=== PATIENT | female | born 1950 | race Caucasian/White ===

== ENCOUNTER → 2018-06-06 13:00 | Outpatient (CLI) | payer MEDICARE, SELFPAY | PROVIDERS: Family Provider Internal Medicine; PCP Internal Medicine | DX: Z23 Encounter for immunization (principal) | CPT/HCPCS: 90471; 90662 ==

== ENCOUNTER → 2019-03-05 08:50 | Outpatient (CLI) | payer MEDICARE, SELFPAY ==
--- NOTE | 2019-03-05 | DI.MRI.S_ITS ---
PROCEDURE: MR FEMUR RT WO CON INDICATIONS: Pain in right leg TECHNIQUE: Noncontrast coronal and sagittal T1 spin echo and STIR; axial T1 spin echo and T2 fast spin echo with fat saturation through the right thigh. COMPARISON: None. FINDINGS: Image quality: Diagnostic. Bones: No acute fracture or dislocation is identified involving the osseous structures of the right thigh. The other included osseous structures of the knee patient are intact. No suspicious osseous lesions are identified. Soft tissues: There is a full-thickness tear of the hamstrings tendons from the ischial tuberosity with mild distal retraction of the torn tendon fragments by up to approximately 2-3 cm. Mild edema along the course of the gastrocnemius muscles is evident. No soft tissue masses or drainable fluid collections are identified. There is mild edema identified along the adductor muscles and also involving the quadratus femoris and obturator internus muscles. The included soft tissues of the lower pelvis are grossly unremarkable. IMPRESSION: 1. Complete tears of the right hamstrings tendons with mild distal retraction. 2. Moderate strains of the adductor muscles, quadratus femoris muscle, and obturator internus muscle. 3. No acute fractures. Dictated by: Delon Farrar M.D. on 03/05/2019 at 8:55 Approved by: Delon Farrar M.D. on 03/05/2019 at 8:59
== END ==
PROVIDERS: Family Provider Internal Medicine; PCP Internal Medicine; Referring Provider Orthopaedic Surgery; Visit Provider Orthopaedic Surgery
DX: M79.604 Pain in right leg (principal); S76.811A Strain of other specified muscles, fascia and tendons at thigh level, right thigh, initial encounter
CPT/HCPCS: 73718

== ENCOUNTER → 2019-05-20 11:12 | Outpatient (CLI) | payer MEDICARE, SELFPAY | PROVIDERS: Family Provider Internal Medicine; PCP Internal Medicine | DX: Z23 Encounter for immunization (principal) | CPT/HCPCS: 90471; 90686 ==

== ENCOUNTER 2019-06-19 12:16 | Day surgery (SDC) | payer MEDICARE, SELFPAY ==
[2019-06-17 07:38] VITALS: BMI 31.6
--- NOTE | 2019-06-19 | PATH_ITS ---
[facility] Accession Number: [id number] . 01 Material submitted: . PART A: endometrium - ENDOMETRIAL CURETTINGS PART B: body - INTERCAVITARY MASS . 01 Clinical history: . HYSTEROSCOPY D/C . 02 Diagnosis: A. Endometrial Curettings: Small fragments of endometrial tissue and strips of endometrial glandular epithelium; negative for glandular hyperplasia, cytologic atypia or malignancy; occasional granular elements present, possibly consistent with actinomyces sulfur granules, in the appropriate clinical context. Avulsed squames with reactive features; negative for squamous dysplasia or malignancy. Avulsed portions of squamous mucosa with features of atrophy; negative for squamous dysplasia or malignancy. Please see comment. . B. Intracavitary Mass: Portions of endometrial tissue with features of cystic atrophy; negative for glandular hyperplasia, cytologic atypia or malignancy. Small fragments of myometrium with no significant histomorphologic abnormality. [facility] 06/23/2019 1440 Local . 02 Comment: Part A: Due to the scant nature of endometrial tissue in this biopsy, it may not be entirely technical services representative of this patient's endometrium. Additional sampling could be considered, if clinically appropriate. . 02 Electronically signed: . Moriah Lau MD, Pathologist NPI- [id number] . 01 Gross description: . (A) Received in formalin, labeled endometrial curettings, are multiple fragments of red-brown tissue (0.7 x 0.3 x less than 0.1 cm in aggregate). Filtered and entirely submitted in cassette A1. (B) Received in formalin, labeled intracavitary mass, are multiple pieces of theodore-pink rubbery tissue (2.0 x 0.5 x 0.5 cm in aggregate). Entirely submitted in cassette B1. ([id number]) /[facility] 06/23/2019 1109 Local . 02 Pathologist provided ICD-10: N95.0 . 02 CPT . 436185, [id number] Performed at: 01 [facility] [address] [place] [address], [place], [place] [id number] MD Dwight Jarrell MD Phone: [phone] Performed at: 02 [facility] [address] [place], [place] [id number] MD Ama Gonzalez MD Phone: [phone]
[2019-06-19 12:33] VITALS: BMI 31.6
[2019-06-19 12:54] VITALS: BP 151/83; PULSE 60; RESP 15; TEMP 36.4; O2SAT 98
[2019-06-19 13:01] VITALS: BMI 31.6
[2019-06-19] MEDS: LACTATED RINGERS 1,000 ML 100 ML IV (13:01)
--- NOTE | 2019-06-19 13:32 | PM.PREOP ---
Pre-operative Note Interval Note History & Physical reviewed/Exam performed by Physician: Yes Changes to H&P: No
--- NOTE | 2019-06-19 14:49 | SUR.OPER ---
Lithotomy on padded OR bed, head on pillow, arms secured on padded arm boards at <90 degrees abduction. Legs secured in padded yellow fins stirrups.
--- NOTE | 2019-06-19 15:24 | PM.OP.1 ---
Operative Date/Time/Diagnoses Date of procedure: 06/19/19 Time of procedure: 15:24 Pre-op diagnosis: Postmenopausal bleeding Post-op diagnosis: same Procedure & Clinicians Procedure: Hysteroscopy D&C with resection of intracavitary mass Same procedure as scheduled: Yes Indications: Postmenopausal bleeding and thickened endometrium on ultrasound Surgeon: Yu Borrero Click Yes if Unassisted: Yes Anesthesia Type: General Operative Notes Findings: Intrauterine mass either fibroid or polyp thin endometrium otherwise Closure Type: not applicable Specimen(s): other (Endometrial curettings and uterine intracavitary mass) Estimated Blood Loss (mL): 5 Blood products transfused: none Procedure in detail: The patient was brought to the operating room where she underwent general anesthesia. She was placed in low stirrups She was prepped and draped in usual sterile fashion with pulsatile stockings in place and functional, warming in place. No antibiotics were indicated. A single-tooth tenaculum was placed on the anterior lip of the cervix and the uterus dilated to #8 Hegar dilator. The hysteroscope was placed into the uterus with a sorbitol solution running and under constant suction. The resecting loop set at 80 W of cutting was used to resect the mass down to the level of the endometrium. A endometrial curettage was performed. The mass and the endometrial curettage was sent to pathology. The patient went to recovery room in good condition counts of instruments and sponges were correct. Estimated blood loss less than 5 mL. The sorbitol solution I=O approximately 2000 mL. Complications: none Post-operative Condition: stable Disposition: same day surgery Plan for aftercare: Home when awake and stable
[2019-06-19 15:25] VITALS: BP 141/73; PULSE 68; RESP 13; TEMP 36.2; O2SAT 98
[2019-06-19 15:30] VITALS: BP 143/76; PULSE 64; RESP 15; O2SAT 97
[2019-06-19 15:35] VITALS: BP 142/82; PULSE 63; RESP 15; O2SAT 97
[2019-06-19 16:00] VITALS: BP 150/81; PULSE 57; TEMP 36.2; O2SAT 97
== END 2019-06-19 16:37 | disposition home or self-care (01) ==
PROVIDERS: PCP Internal Medicine; Visit Provider Specialist
PROC: 0UDB8ZZ Extraction of Endometrium, Via Natural or Artificial Opening Endoscopic (ICD-10-PCS; CPT 58558; principal; 2019-06-19 13:45)
DX: N95.0 Postmenopausal bleeding (principal)
CPT/HCPCS: 58558; J1100; J2250; J2405; J2704; J3010

== ENCOUNTER → 2019-08-15 16:08 | Outpatient (CLI) | payer MEDICARE, SELFPAY ==
--- NOTE | 2019-08-15 | DI.MRI.S_ITS ---
PROCEDURE: MR LUMBAR SPINE WO CON INDICATIONS: Left Radiculopathy, lumbar region TECHNIQUE: Noncontrast sagittal T1 spin echo and T2 fast echo, sagittal STIR, axial T1 and T2 fast spin echo through the lumbar spine. In cases with scoliosis, additional coronal T2 fast spin echo may be performed. COMPARISON: [facility], CT, CT KIDNEY URETER BLADDER (KUB), 10/31/2017, 18:05. FINDINGS: Image quality: Excellent. Alignment and Curvature: No significant alignment abnormality is seen. Bone Marrow: Marrow is of normal overall signal. No acute vertebral body compression fractures. Spinal Cord: Conus medullaris terminates at the L1 level. Visualized cord demonstrates normal signal and size. Paraspinous Soft Tissues: No paravertebral masses. T12-L1: Normal appearance. L1-L2: Mild loss of disc height is seen. Loss of disc signal is seen. Bridging endplate osteophytes are seen. Mild generalized disc bulge is seen. Mild to moderate facet hypertrophy is seen. No significant neural foraminal or central canal narrowing can be seen. L2-L3: The disc height is well-preserved. Loss of disc signal is seen at this level. Minimal disc bulge is seen. Mild facet joint hypertrophy is seen. No significant neural foraminal or central canal narrowing can be seen. L3-L4: The disc height is well-preserved. Loss of disc signal is seen at this level. Mild to moderate disc bulge is seen, which is eccentric to the right. Mild to moderate facet hypertrophy is seen. There is minimal right-sided and no left-sided neural foraminal narrowing seen. Minimal to mild central canal narrowing is seen. L4-L5: The disc height is well-preserved. Loss of disc signal is seen at this level. Moderate disc bulge is seen, with a superimposed central disc extrusion, with superior migration of disc material. There is at least moderate facet hypertrophy seen at this level. There is moderate bilateral neural foraminal narrowing seen, right worse than left. Moderate to severe central canal narrowing is seen, as on series 4 image 23. L5-S1: Mild loss of disc height is seen. Loss of disc signal is seen. Mild generalized disc bulge is seen. Prominent facet hypertrophy is seen. There is moderate left-sided and no significant right-sided neural foraminal narrowing seen. Minimal central canal narrowing is seen. IMPRESSION: At L4-L5, there is a central disc extrusion, with associated moderate to severe central canal narrowing. Milder degenerative changes are seen elsewhere. Dictated by: Shade Lanier M.D. on 08/18/2019 at 8:33 Approved by: Shade Lanier M.D. on 08/18/2019 at 8:38
== END ==
PROVIDERS: PCP Internal Medicine; Referring Provider Orthopaedic Surgery; Visit Provider Orthopaedic Surgery
DX: M51.16 Intervertebral disc disorders with radiculopathy, lumbar region (principal); M48.061 Spinal stenosis, lumbar region without neurogenic claudication; M48.07 Spinal stenosis, lumbosacral region; M47.26 Other spondylosis with radiculopathy, lumbar region; M47.27 Other spondylosis with radiculopathy, lumbosacral region
CPT/HCPCS: 72148

== ENCOUNTER → 2019-09-04 08:31 | Outpatient (CLI) | payer MEDICARE, SELFPAY ==
--- NOTE | 2019-09-04 | DI.RAD.S_ITS ---
PROCEDURE: XR LUMBAR SPINE 2-3V INDICATIONS: LOW BACK PAIN TECHNIQUE: 3 views of the lumbar spine were acquired. COMPARISON: None. FINDINGS: Bones: No fracture or focal osseous destruction. Multilevel degenerative endplate sclerosis and spurring. Diffuse facet arthropathy. Trace anterolisthesis of L5 on S1. Trace retrolisthesis of L1 on L2. Mild narrowing of the L1-L2, L2-L3, L3-L4 disc spaces. Moderate bilateral hip degeneration. Sacroiliac joints grossly unremarkable Soft tissues: Scattered vascular calcifications seen in the aorta. IMPRESSION: Diffuse mild lumbar spondylosis and facet arthropathy. Multilevel spondylolisthesis as above. Moderate symmetric bilateral hip joint degeneration. Dictated by: Aguila Green M.D. on 09/04/2019 at 12:02 Approved by: Aguila Grene M.D. on 09/04/2019 at 12:05
== END ==
PROVIDERS: PCP Internal Medicine; Referring Provider Chiropractor; Visit Provider Chiropractor
DX: M54.5 Low back pain (principal); M47.816 Spondylosis without myelopathy or radiculopathy, lumbar region; M16.0 Bilateral primary osteoarthritis of hip; M43.16 Spondylolisthesis, lumbar region
CPT/HCPCS: 72100

== ENCOUNTER → 2020-11-22 08:10 | Outpatient (CLI) | payer MEDICARE, SELFPAY ==
--- NOTE | 2020-11-22 | DI.RAD.S_ITS ---
PROCEDURE: XR DEXA AXIAL SKELETON INDICATIONS: ROUTINE SCREENING COMPARISON: None. FINDINGS: This blank DEXA report has been sent in error by the PACS system. The correct and complete report will be forthcoming in 1-2 days. Thank you for your patience and understanding. Dictated by: Naya Quiles MD, PhD on 11/22/2020 at 16:05 Approved by: Naya Quiles MD, PhD on 11/22/2020 at 16:05
--- NOTE | 2020-11-22 | DI.MG.S_ITS ---
BILATERAL DIGITAL SCREENING MAMMOGRAM 3D/2D WITH CAD: 11/22/2020 CLINICAL: Routine screening. Comparison is made to exams dated: 05/26/2016 mammogram and 12/13/2010 mammogram - [facility]. There are scattered fibroglandular elements in both breasts. Current study was also evaluated with a Computer Aided Detection (CAD) system. No significant masses, calcifications, or other findings are seen in either breast. There has been no significant interval change. IMPRESSION: NEGATIVE There is no mammographic evidence of malignancy. A 1 year screening mammogram is recommended. This exam was interpreted at Station ID: [id number]. NOTE: For mammograms, a report in lay terms will be sent to the patient. Approximately 15% of breast malignancies will not be visualized mammographically. In the management of a palpable breast mass, a negative mammogram must not discourage biopsy of a clinically suspicious lesion. Electronically Signed By: Ramiro cano/joe:11/22/2020 08:39:12 letter sent: Normal Exam ACR BI-RADS Category 1: Negative [id number]
== END ==
PROVIDERS: PCP Internal Medicine; Referring Provider Internal Medicine; Visit Provider Internal Medicine
DX: Z78.0 Asymptomatic menopausal state (principal); Z12.31 Encounter for screening mammogram for malignant neoplasm of breast; Z82.62 Family history of osteoporosis
CPT/HCPCS: 77063; 77067; 77080

== ENCOUNTER → 2021-01-20 13:42 | Outpatient (CLI) | payer MEDICARE, SELFPAY ==
[2021-01-20 14:08] LABS: COVID19 -Nasal RAPID Negative (Negative)
== END ==
PROVIDERS: PCP Internal Medicine; Visit Provider Physician Assistant
DX: Z20.822 Contact with and (suspected) exposure to COVID-19 (principal)
CPT/HCPCS: 87635; C9803

== ENCOUNTER → 2021-06-10 11:57 | Outpatient (CLI) | payer MEDICARE, SELFPAY ==
[2021-06-10 12:35] LABS: COVID19 -Nasal RAPID Negative (Negative)
== END ==
PROVIDERS: PCP Internal Medicine; Visit Provider Physician Assistant
DX: Z20.822 Contact with and (suspected) exposure to COVID-19 (principal)
CPT/HCPCS: 87635; C9803

== ENCOUNTER → 2021-06-17 09:59 | Outpatient (CLI) | payer MEDICARE, SELFPAY ==
[2021-06-17 12:31] LABS: COVID19 -Nasal RAPID Negative (Negative)
== END ==
PROVIDERS: PCP Internal Medicine; Visit Provider Physician Assistant
DX: Z20.822 Contact with and (suspected) exposure to COVID-19 (principal)
CPT/HCPCS: 87635; C9803

== ENCOUNTER → 2021-07-08 09:48 | Outpatient (CLI) | payer MEDICARE, SELFPAY ==
[2021-07-08 11:01] LABS: COVID19 -Nasal RAPID Negative (Negative)
== END ==
PROVIDERS: Nurse Practitioner Critical Care Medicine; PCP Internal Medicine; Referring Provider Internal Medicine; Visit Provider Internal Medicine
DX: Z20.822 Contact with and (suspected) exposure to COVID-19 (principal)
CPT/HCPCS: 87635

== ENCOUNTER → 2021-10-10 10:00 | Outpatient (CLI) | payer MEDICARE, SELFPAY ==
[2021-10-10 10:52] LABS: Add Manual Diff / Slide Review NO; Basophils Absolute Auto 100 /uL (0-100); Basophils Percent Auto 1.1 % (0-2); Eosinophils Absolute Auto 100 /uL (0-450); Eosinophils Percent Auto 1.3 % (2-4); Hematocrit 41.8 % (36-46); Hemoglobin 14.1 g/dL (12.0-16.0); Lymphocytes Absolute Auto 2000 /uL (1100-4500); Mean Corpuscular HGB Conc 33.8 % (30-36); Mean Corpuscular Hemoglobin 32.6 PG (26-34); Mean Corpuscular Volume 96.5 fL (80-100); Monocytes Absolute Auto 400 /uL (0-900); Monocytes Percent Auto 7.1 % (3-14); Neutrophils Absolute Auto 2900 /uL (1500-7000); Neutrophils Percent Auto 53.5 % (50-75); Platelet Count 190 X10^3/uL (150-400); Red Blood Cell Count 4.33 X10^6/uL (4.0-5.2); Red Cell Distribution Width 12.9 % (11.6-14.8); White Blood Cell Count 5.4 X10^3/uL (4.5-11.0)
[2021-10-10 11:05] LABS: Alanine Aminotransferase 23 IU/L (<35); Albumin 4.3 g/dL (3.5-5.0); Albumin Globulin Ratio 1.3 (1.0-2.8); Alkaline Phosphatase 71 U/L (38-126); Aspartate Aminotransferase 28 IU/L (14-36); BUN Creatinine Ratio 32.9 (6-22); Bilirubin Total 0.5 mg/dL (0.2-1.3); Blood Urea Nitrogen 24 mg/dL (7-17); Calcium 9.1 mg/dL (8.4-10.2); Carbon Dioxide 29 mmol/L (22-32); Chloride 106 mmol/L (98-107); Cholesterol 239 mg/dL (140-199); Estimated Glomerular Filt Rate > 60.0 mL/min (>60); Globulin 3.3 g/dL (1.7-4.1); Glucose 99 mg/dL (80-110); HDL Cholesterol 78 mg/dL (40-60); HEMOLYSIS < 15 (0-50); LDL Cholesterol Calculated 130 mg/dL (<100); Potassium 4.5 mmol/L (3.4-5.1); Sodium 142 mmol/L (137-145); Total Protein 7.6 g/dL (6.3-8.2); Triglycerides 153 mg/dL (35-150)
[2021-10-10 11:53] LABS: TSH w/ Reflex to FT4 2.41 uIU/mL (0.47-4.68)
== END ==
PROVIDERS: PCP Internal Medicine; Referring Provider Internal Medicine; Visit Provider Internal Medicine
DX: E78.2 Mixed hyperlipidemia (principal)
CPT/HCPCS: 36415; 80053; 80061; 84443; 85025

== ENCOUNTER → 2021-11-14 10:56 | Outpatient (CLI) | payer MEDICARE, SELFPAY ==
[2021-11-14 13:54] LABS: COVID19 -Nasal RAPID Negative (Negative)
== END ==
PROVIDERS: PCP Internal Medicine; Visit Provider Surgery
DX: Z20.822 Contact with and (suspected) exposure to COVID-19 (principal); Z01.812 Encounter for preprocedural laboratory examination
CPT/HCPCS: 87635; C9803

== ENCOUNTER 2021-11-15 07:19 | Day surgery (SDC) | payer MEDICARE, SELFPAY ==
[2021-11-15 07:39] VITALS: BMI 31.3
[2021-11-15] MEDS: LACTATED RINGERS 1,000 ML 200 ML IV (07:52)
[2021-11-15 07:53] VITALS: BP 133/80; PULSE 56; RESP 16; TEMP 36.4; O2SAT 97
--- NOTE | 2021-11-15 08:35 | P.HP_ITS ---
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 History is notable for first-degree relative with colon cancer, sister. She has a personal history of colonic polyps. Last colonoscopy was performed 2016 and demonstrated a tubular adenoma. Is currently feeling well. Patient History Medical History Actinic keratosis (~2009) Aortic atherosclerosis Back pain Bilateral primary osteoarthritis of knee Chronic insomnia Encounter for general adult medical examination without abnormal findings Fractures GI bleed due to NSAIDs (~2016) H/O reduction of closed fracture (08/15/16) Herpes (~1973) Herpes genitalis History of colon polyps Kidney stones (~2004) Mixed hyperlipidemia Plantar warts (~1975) Shoulder pain Surgical History Anesthesia History of surgery (~2015) Hx of arthroscopic knee surgery (~1980) Hx of tonsillectomy (~1956) Family & Social History Family History Father Cancer History of heart disease Mother COPD (chronic obstructive pulmonary disease) Brother History of heart disease Hypertension Melanoma Sister Diabetes mellitus History of heart disease Hypertension Hyperlipidemia Mental health problem Grandfather History of heart disease Grandmother COPD (chronic obstructive pulmonary disease) Grandmother Tuberculosis Social History: household members none Tobacco & Substance use: Smoking Status Never smoker alcohol intake current alcohol intake frequency a few times a week Substance Use Type does not use Meds Home Medications and Allergies Home Medications Medication Instructions Recorded Confirmed Type cholecalciferol (vitamin D3) 25 1,000 unit PO QDAY #0 08/15/16 11/15/21 History mcg (1,000 unit) tablet (Vitamin D3) acetaminophen 500 mg tablet 1,000 mg PO Q6H PRN 06/19/19 11/15/21 History (Tylenol Extra Strength) tramadol 50 mg tablet 50 mg PO QDAY PRN #30 tab 06/19/19 10/10/21 Rx Lactobacillus 1 cap PO DAILY cap 10/10/21 11/15/21 History acidophilus-Bifidobac.animalis 2.5 billion cell capsule (Daily Probiotic) aspirin 81 mg capsule 81 mg PO DAILY 10/10/21 11/15/21 History glucosamine 1500/Chondroitin 1200 1 tab PO BID 10/10/21 11/15/21 History hydrocodone 5 mg-acetaminophen 325 1 tab PO BEDTIME PRN 10/10/21 11/15/21 Histor y mg tablet ibuprofen 200 mg tablet 200 mg PO BID PRN tab 10/10/21 11/15/21 History loratadine 10 mg tablet 10 mg PO DAILY 10/10/21 11/15/21 History (Allerclear) magnesium oxide 400 mg PO DAILY 10/10/21 11/15/21 History melatonin 5 mg capsule 5 mg PO .qhs PRN cap 10/10/21 11/15/21 History rosuvastatin 10 mg tablet 10 mg PO DAILY #90 tab 10/10/21 11/15/21 Rx vitamin A-vitamin C-vit E-min 2 tab PO DAILY PRN 10/10/21 10/10/21 History tablet zolpidem 10 mg tablet 10 mg PO BEDTIME PRN tab 10/10/21 10/10/21 History acyclovir 200 mg capsule 200 mg PO BID PRN 11/14/21 11/15/21 History Allergies Allergy/AdvReac Type Severity Reaction Status Date / Time pineapple [PINEAPPLE] Allergy Mild sores in Verified 11/15/21 07:35 mouth naproxen [From Aleve] AdvReac Severe gi bleed Verified 11/15/21 07:35 with high doses Exam Vital Signs (past 8 hours): - 11/15/21 07:53 Temperature 97.6 F Pulse Rate 56 L Respiratory Rate 16 Blood Pressure 133/80 Pulse Oximetry 97 Oxygen Delivery Method Room Air Narrative Exam Narrative: General adult woman alert oriented no acute distress Chest nonlabored respirations Extremities warm well perfused Assessment & Plan Assessment & Plan narrative: The patient requires colorectal screening and colonoscopy is recommended. Technical details were discussed. Risks, benefits, alternatives explained. Risks including but not limited to myocardial infarction, aspiration, bleeding, pain, missed lesion, incomplete examination, need for further radiographic studies, colonic perforation, and need for major abdominal surgery were discussed. All questions were answered to their satisfaction, and they are in agreement with this plan. Time Spent With Patient Critical Care time: I spent a total of [] minutes of critical care time on this patient's care today; this time is exclusive of procedural time.
[2021-11-15] MEDS: fentaNYL 250 MCG/5 ML INJ 200 MCG IV (08:41)
[2021-11-15] MEDS: MIDAZOLAM 5 MG/5 ML VIAL 3 MG IV (08:41)
--- NOTE | 2021-11-15 09:01 | P.OP.COLON_ITS ---
Operative Date/Time/Diagnoses Date of procedure: 11/15/21 Time of procedure: 09:02 Pre-op diagnosis: First-degree family member with colon cancer, personal history of colonic polyps Post-op diagnosis: same Procedure & Clinicians Study performed: Colonoscopy Same procedure as scheduled: Yes Indications: Personal history of colonic polyps, first-degree family member with colon cancer Surgeon: Jeb Rodriguez Procedure Notes Procedure in detail: Medications: Conscious sedation using 3 mg IV midazolam and 200 mcg IV of fentanyl The history and physical was performed/updated and the patient is ASA class is 2. The procedure was discussed in detail with the patient. Potential risks complications including infection, bleeding, missed diagnosis, perforation, need for surgery, and were explained. Their questions were answered and inf ormed consent was obtained. Patient was brought to the procedure room and placed standard monitoring equipment. The patient's vital signs were monitored continuously throughout the entire procedure. Prior to starting time-out was performed. The patient was placed in the left lateral recumbent position. Procedural sedation was administered. Examination began with a thorough inspection of the perianal area there was no evidence of fissures, fistulae, external hemorrhoids or cutaneous malignancy. The colonoscopy scope was then placed into the anal canal and was advanced to the cecum, which was identified by the ileocecal valve, the appendiceal orifice and the confluence of the taenia. The scope was then slowly withdrawn examining colon thoroughly in all directions, irrigating it of any residual stool. FINDINGS 1. No masses or polyps 2. Mild sigmoid diverticulosis 3. Internal hemorrhoids The patient tolerated the procedure well. They will be discharged once criteria are met. The prep was of good/excellent quality. The withdrawl time was 6 minutes. The sedation time was 20 minutes. Specimen(s): none sent Complications: none Impression: Normal colonoscopy Post-procedure Recommendations: Colonoscopy in 5 years Disposition: same day surgery
[2021-11-15 09:07] VITALS: BP 129/78; PULSE 57; RESP 19; TEMP 36.1; O2SAT 97
[2021-11-15 09:12] VITALS: BP 138/76; PULSE 54; RESP 14; O2SAT 97
[2021-11-15 09:17] VITALS: BP 132/71; PULSE 55; RESP 19; O2SAT 96
[2021-11-15 09:22] VITALS: BP 144/76; PULSE 56; RESP 18; O2SAT 98
[2021-11-15 09:24] VITALS: BP 143/75; PULSE 55; RESP 16; TEMP 36.2; O2SAT 97
== END 2021-11-15 09:50 | disposition home or self-care (01) ==
PROVIDERS: PCP Internal Medicine; Referring Provider Surgery; Visit Provider Surgery
PROC: 0DJD8ZZ Inspection of Lower Intestinal Tract, Via Natural or Artificial Opening Endoscopic (ICD-10-PCS; CPT 45378; principal; 2021-11-15 08:30)
DX: Z12.11 Encounter for screening for malignant neoplasm of colon (principal); Z86.010 Personal history of colon polyps; Z80.0 Family history of malignant neoplasm of digestive organs; K57.30 Diverticulosis of large intestine without perforation or abscess without bleeding; K64.1 Second degree hemorrhoids
CPT/HCPCS: G0105; 45380; 99152; J2250; J3010

== ENCOUNTER → 2022-07-14 17:02 | Outpatient (CLI) | payer MEDICARE, SELFPAY ==
[2022-07-14 18:38] LABS: Alanine Aminotransferase 20 IU/L (<35); Alkaline Phosphatase 72 U/L (38-126); Aspartate Aminotransferase 29 IU/L (14-36); BUN Creatinine Ratio 35.5 (6-22); Bilirubin Total 0.5 mg/dL (0.2-1.3); Blood Urea Nitrogen 22 mg/dL (7-17); Calcium 9.4 mg/dL (8.4-10.2); Carbon Dioxide 28 mmol/L (22-32); Chloride 101 mmol/L (98-107); Cholesterol 187 mg/dL (140-199); Estimated Glomerular Filt Rate > 60 mL/min (>60); Glucose 84 mg/dL (80-110); HDL Cholesterol 90 mg/dL (40-60); HEMOLYSIS < 15 (0-50); LDL Cholesterol Calculated 71 mg/dL (<100); Potassium 4.4 mmol/L (3.4-5.1); Sodium 138 mmol/L (137-145); Total Protein 7.7 g/dL (6.3-8.2); Triglycerides 129 mg/dL (35-150)
[2022-07-21 15:16] LABS: Albumin 4.3 g/dL (3.5-5.0); Albumin Globulin Ratio 1.3 (1.0-2.8); Globulin 3.4 g/dL (1.7-4.1)
== END ==
PROVIDERS: PCP Internal Medicine; Referring Provider Internal Medicine; Visit Provider Internal Medicine
DX: E78.2 Mixed hyperlipidemia (principal); I70.0 Atherosclerosis of aorta
CPT/HCPCS: 36415; 80053; 80061

== ENCOUNTER → 2023-05-22 15:22 | Outpatient (CLI) | payer MEDICARE, SELFPAY ==
[2023-05-22 16:30] LABS: Hematocrit 41.3 % (36-46); Hemoglobin 14.4 g/dL (12.0-16.0); Mean Corpuscular HGB Conc 34.8 % (30-36); Mean Corpuscular Hemoglobin 33.5 PG (26-34); Mean Corpuscular Volume 96.5 fL (80-100); Platelet Count 217 X10^3/uL (150-400); Red Blood Cell Count 4.28 X10^6/uL (4.0-5.2); Red Cell Distribution Width 12.7 % (11.6-14.8); White Blood Cell Count 7.8 X10^3/uL (4.5-11.0)
[2023-05-22 17:12] LABS: Alanine Aminotransferase 22 IU/L (<35); Albumin 4.4 g/dL (3.5-5.0); Albumin Globulin Ratio 1.3 (1.0-2.8); Alkaline Phosphatase 69 U/L (38-126); Aspartate Aminotransferase 29 IU/L (14-36); BUN Creatinine Ratio 29.6 (6-22); Bilirubin Total 0.7 mg/dL (0.2-1.3); Blood Urea Nitrogen 21 mg/dL (7-17); Calcium 9.8 mg/dL (8.4-10.2); Carbon Dioxide 28 mmol/L (22-32); Chloride 104 mmol/L (98-107); Cholesterol 190 mg/dL (140-199); Estimated Glomerular Filt Rate > 60 mL/min (>60); Globulin 3.4 g/dL (1.7-4.1); Glucose 89 mg/dL (80-110); HDL Cholesterol 89 mg/dL (40-60); HEMOLYSIS < 15 (0-50); LDL Cholesterol Calculated 71 mg/dL (<100); Sodium 138 mmol/L (137-145); Total Protein 7.8 g/dL (6.3-8.2); Triglycerides 149 mg/dL (35-150)
[2023-05-22 17:39] LABS: TSH w/ Reflex to FT4 1.96 uIU/mL (0.47-4.68)
== END ==
PROVIDERS: PCP Internal Medicine; Referring Provider Internal Medicine; Visit Provider Internal Medicine
DX: R07.9 Chest pain, unspecified (principal); E78.2 Mixed hyperlipidemia; I70.0 Atherosclerosis of aorta
CPT/HCPCS: 36415; 80053; 80061; 84443; 85027

== ENCOUNTER → 2023-06-22 10:14 | Outpatient (CLI) | payer MEDICARE, SELFPAY ==
--- NOTE | 2023-06-23 06:56 | DI.NM.S_ITS ---
DATE OF SERVICE: 06/22/2023 STUDY: Exercise perfusion study INDICATION: Chest pain with underlying hypertension, hyperlipidemia. RADIOPHARMACEUTICAL: 27.5 mCi technetium-99m Myoview IV was injected at stress and 12.1 mCi technetium-99m Myoview IV was injected at rest. CARDIAC STRESS: The patient underwent exercise perfusion study under the supervision of an attending staff. The patient walked on Georges protocol for 6 minutes and 9 seconds, achieved maximum heart rate of 134 which was 90% of target heart rate. Resting blood pressure 132/90 and peak blood pressure 180/102 mmHg. Achieved 7 METs of workload. Baseline rhythm was sinus. No significant inducible ischemic changes. The patient has frequent PVCs including couplets and a one-three beat run of nonsustained ventricular tachycardia. No anginal symptoms. Mountain fatigue and shortness of breath. SHEILA -8%. RAW DATA: Breast shadow seen. GATED STUDY: Resting LV ejection fraction 67% and stress LV ejection fraction 68% without any significant wall motion abnormalities. Resting end-diastolic volume 111 mL. TID ratio 0.96 which is within normal limits. Lung/heart ratio 0.34 which is within normal limits. MYOCARDIAL PERFUSION SCAN: Stress supine, resting supine, and stress prone images were compared to each other. There appears to be predominantly fixed moderate-size mildly decreased perfusion of mid to distal anterior wall extending into the anterior apex with mild reversibility. CONCLUSION: This is an abnormal myocardial perfusion study with moderate-size persistent mildly decreased perfusion of mid to distal wall extending into the anterior apex with mild reversibility. Consistent with prior non-transmural myocardial infarction and mild reversible garcia-infarct ischemia. However, on raw images, breast shadow was seen. No wall motion abnormalities. Other differential diagnosis, persistent breast tissue attenuation artifact. Fair exercise tolerance. Normal hemodynamic response. The patient has frequent PVCs during exercise with one-three beat run of nonsustained ventricular tachycardia. Left ventricular function is preserved. Correlate clinically and if pre-tests likely for coronary artery disease is high, consider left heart catheterization to make sure there is no underlying LAD disease. Discussed the findings with Dr. Holloway. Cinthya Zhou - Rayray/gabriela doc#: [id number]/job#: [id number] dd: 06/22/2023 16:35:00 dt: 06/23/2023 06:28:00 DICTATING MD/COPIES TO: Johnnie Solitario MD COPIES MNE: VISHNU;
== END ==
PROVIDERS: PCP Internal Medicine; Referring Provider Internal Medicine; Visit Provider Internal Medicine
DX: R07.9 Chest pain, unspecified (principal); R94.39 Abnormal result of other cardiovascular function study
CPT/HCPCS: 78452; 93017; A9502

== ENCOUNTER → 2024-07-14 09:41 | Outpatient (CLI) | payer MEDICARE, SELFPAY ==
--- NOTE | 2024-07-14 09:43 | DI.MG.S_ITS ---
BILATERAL DIGITAL SCREENING MAMMOGRAM 3D/2D WITH CAD: 07/14/2024 CLINICAL: Routine screening. Family history of breast cancer. Comparison is made to exams dated: 11/22/2020 mammogram, 05/26/2016 mammogram, and 12/13/2010 mammogram - [facility]. There are scattered areas of fibroglandular density (category b / 25%-50% glandular tissue). Current study was also evaluated with a Computer Aided Detection (CAD) system. No significant masses, calcifications, or other findings are seen in either breast. There has been no significant interval change. IMPRESSION: NEGATIVE There is no mammographic evidence of malignancy. A 1 year screening mammogram is recommended. Based on the Tyrer Cuzick model (a risk assessment model) the patient's lifetime risk is 5.8% and her 10 year risk is 4.3%. According to the ACR, ACS, and NCCN guidelines, an annual breast MRI exam along with mammogram is recommended if the patient's lifetime risk is 20% or greater. This exam was interpreted at Station ID: [id number]. NOTE: For mammograms, a report in lay terms will be sent to the patient. Approximately 15% of breast malignancies will not be visualized mammographically. In the management of a palpable breast mass, a negative mammogram must not discourage biopsy of a clinically suspicious lesion. Electronically Signed By: Jose jean-baptiste/joe:07/14/2024 10:16:57 letter sent: Normal Exam ACR BI-RADS Category 1: Negative
--- NOTE | 2024-07-14 09:43 | DI.RAD.S_ITS ---
PROCEDURE: XR DEXA AXIAL SKELETON INDICATIONS: screening for osteoporosis COMPARISON: [facility], [place], XR DEXA AXIAL SKELETON, 11/22/2020, 9:43. FINDINGS: Lumbar Spine: Bone mineral density 1.118 g/cm2, T score 0.9, within normal range. Left Hip: Bone mineral density 0.932 g/cm2, T score -0.1, within normal range. Left Femoral Neck: Bone mineral density 0.777 g/cm2, T score -0.6, within normal range, though trending down from prior studies. Fracture Risk Calculation (when applicable): 10-year fracture risk of a major osteoporotic fracture 8.2 percent and of a hip fracture 0.8 percent. (T score greater or equal to -1.0 to: NORMAL) (T score from -1.1 to -2.4: OSTEOPENIA) (T score less than or equal to -2.5: OSTEOPOROSIS) IMPRESSION: Normal bone mineral density at the lumbar spine and left hip. Follow-up guidelines as follows: Osteoporosis: Consider a repeat DEXA and Vertebral Fracture Assessment (VFA) exam in 2 years or sooner if medically necessary, to reassess this patient's status. Osteopenia: Consider a repeat DEXA in 2-3 years to reassess this patient's status, or if there is a new clinical indication. Normal: Consider a repeat DEXA in 5 years or sooner, or if there is a new clinical indication. All treatment decisions require clinical judgment and consideration of individual patient factors, including patient preferences, comorbidities, previous drug use, risk factors not captured in the FRAX model (e.g., frailty, falls, vitamin D deficiency, increased bone turnover, interval significant decline in bone density ) and possible under- or over-estimation of fracture risk by FRAX. In addition, the NOF Guide recommends that FDA-approved medical therapies be considered in postmenopausal women and men age >= 50 years with a: * Hip or vertebral (clinical or morphometric) fracture * T-score of <=-2.5 at the spine or hip * Ten-year fracture probability by FRAX of >= 3% for hip fracture or >=20% for major osteoporotic fracture. People with diagnosed cases of osteoporosis or at high risk for fracture should have regular bone mineral density tests. For patients eligible for Medicare, routine testing is allowed once every 2 years. The testing frequency can be increased to one year for patients who have rapidly progressing disease, those who are receiving or discontinuing medical therapy to restore bone mass, or have additional risk factors. Dictated by: Dwight Davies M.D. on 07/14/2024 at 12:49 Approved by: Dwight Davies M.D. on 07/14/2024 at 12:56
== END ==
PROVIDERS: PCP Internal Medicine; Referring Provider Internal Medicine; Visit Provider Internal Medicine
DX: Z12.31 Encounter for screening mammogram for malignant neoplasm of breast (principal); Z13.820 Encounter for screening for osteoporosis; Z78.0 Asymptomatic menopausal state; Z80.3 Family history of malignant neoplasm of breast
CPT/HCPCS: 77063; 77067; 77080

== ENCOUNTER → 2024-08-21 10:43 | Outpatient (CLI) | payer MEDICARE, SELFPAY ==
[2024-08-21 12:14] LABS: Hematocrit 42.1 % (36-46); Hemoglobin 14.3 g/dL (12.0-16.0); Mean Corpuscular HGB Conc 33.9 % (30-36); Mean Corpuscular Hemoglobin 32.9 PG (26-34); Mean Corpuscular Volume 96.9 fL (80-100); Platelet Count 196 X10^3/uL (150-400); Red Blood Cell Count 4.35 X10^6/uL (4.0-5.2); Red Cell Distribution Width 12.9 % (11.6-14.8); White Blood Cell Count 5.9 X10^3/uL (4.5-11.0)
[2024-08-21 12:34] LABS: Alanine Aminotransferase 51 IU/L (<35); Albumin 4.5 g/dL (3.5-5.0); Albumin Globulin Ratio 1.7 (1.0-2.8); Alkaline Phosphatase 64 U/L (38-126); Aspartate Aminotransferase 52 IU/L (14-36); BUN Creatinine Ratio 27.5 (6-22); Bilirubin Total 0.6 mg/dL (0.2-1.3); Blood Urea Nitrogen 22 mg/dL (7-17); Calcium 9.6 mg/dL (8.4-10.2); Carbon Dioxide 24 mmol/L (22-32); Chloride 104 mmol/L (98-107); Cholesterol 178 mg/dL (140-199); Estimated Glomerular Filt Rate > 60 mL/min (>60); Globulin 2.7 g/dL (1.7-4.1); Glucose 175 mg/dL (80-110); HDL Cholesterol 94 mg/dL (40-60); HEMOLYSIS < 15 (0-50); LDL Cholesterol Calculated 64 mg/dL (<100); Potassium 4.4 mmol/L (3.4-5.1); Sodium 139 mmol/L (137-145); Total Protein 7.2 g/dL (6.3-8.2); Triglycerides 101 mg/dL (35-150)
[2024-08-21 13:04] LABS: TSH w/ Reflex to FT4 2.05 uIU/mL (0.47-4.68)
[2024-08-22 08:45] LABS: Hemoglobin A1C% w Est Avg Glu 5.3 % (4.0-6.0)
== END ==
PROVIDERS: PCP Internal Medicine; Referring Provider Internal Medicine; Visit Provider Internal Medicine
DX: I25.10 Atherosclerotic heart disease of native coronary artery without angina pectoris (principal); E78.2 Mixed hyperlipidemia; R73.9 Hyperglycemia, unspecified
CPT/HCPCS: 36415; 80053; 80061; 83036; 84443; 85027